=== PATIENT | female | born 1995 | race Two or more races ===

== ENCOUNTER 2016-08-19 22:47 | Emergency (ER) | payer MEDICAID ==
[~2016-08-19] VITALS: Ht 167.6 cm; Wt 63.5 kg
[2016-08-19 23:49] LABS: Urine Bilirubin Negative (Negative); Urine Blood Negative /uL (Negative); Urine Color Yellow (Yellow); Urine Glucose Normal (Normal); Urine Ketone Negative (Negative); Urine Mucus FEW (None Seen); Urine Nitrite Negative (Negative); Urine RBC <1 /hpf (0 - 4); Urine Squamous Epithelial Cell FEW /hpf (<5); Urine Urobilinogen Normal (Negative)
[2016-08-20 00:08] LABS: Basophils # (auto) 0.1 uL; Basophils % (auto) 0.5 % (0.0-2.0); Eosinophils # (auto) 0.1 uL; Eosinophils % (auto) 0.7 % (0.0-7.0); Hematocrit 40.8 % (36.0-46.0); Hemoglobin 13.7 g/dL (12.2-16.2); Lymphocytes # (auto) 2.9 uL; Lymphocytes % (auto) 25.5 % (10.0-50.0); Mean Corpuscular Hemoglobin 28.4 pg (28.0-32.0); Mean Corpuscular Hgb Conc. 33.5 g/dL (32.0-36.0); Mean Corpuscular Volume 84.7 fL (80.0-100.0); Mean Platelet Volume 8.3 fL (7.4-10.4); Monocytes # (auto) 0.5 uL; Neutrophils # (auto) 7.7 uL; Neutrophils % (auto) 69.3 % (37.0-80.0); Platelet Count (auto) 412 10^3/uL (140-450); Red Cell Distribution Width 11.8 % (11.6-16.0); White Blood Cell 11.3 10^3/uL (4.4-10.8)
[2016-08-20 00:09] LABS: INR 0.98 (0.9-1.15); Partial Thromboplastin Time 27.2 sec (22.64-33.71); Prothrombin Time 10.1 sec (9.37-12.3)
[2016-08-20 00:13] LABS: Albumin 3.9 g/dL (3.4-5.0); BUN/Creatinine Ratio 10.5; Calcium 8.6 mg/dL (8.5-10.1); Potassium 4.2 mmol/L (3.5-5.1)
[2016-08-20 00:16] LABS: Bilirubin, Total 0.4 mg/dL (0.2-1.0); Total Protein 8.6 g/dL (6.4-8.2)
[2016-08-20 03:13] VITALS: BP 126/72
[2016-08-20] MEDS ORDERED: ONDANSETRON HCL 4 MG/2 ML VIAL IV ONE (03:30)
[2016-08-20] MEDS ORDERED: ACETAMINOPHEN/CODEINE#3 (300/30mg) TAB PO ONE (04:15)
== END 2016-08-20 05:14 | disposition home or self-care (01) ==
LOC: ER 22:58
DX: K76.0 Fatty (change of) liver, not elsewhere classified (principal); N83.209 Unspecified ovarian cyst, unspecified side
CPT/HCPCS: 36415; 74176; 80053; 81001; 81025; 82150; 83690; 85025; 85049; 85610; 85730; 96374; 99285; J2405

== ENCOUNTER 2020-01-26 14:37 | Emergency (ER) | payer MEDICAID ==
[~2020-01-26] VITALS: Ht 172.7 cm; Wt 88.5 kg
[2020-01-26 15:07] LABS: Basophils # (auto) 0 10 ^3/uL (0-0.2); Basophils % (auto) 0.2 % (0.0-2.0); Eosinophils # (auto) 0 10 ^3/uL (0-0.8); Eosinophils % (auto) 0.4 % (0.0-7.0); Hematocrit 38.7 % (36.0-46.0); Hemoglobin 12.8 g/dL (12.2-16.2); Lymphocytes # (auto) 1.8 10 ^3/uL (0.4-5.4); Lymphocytes % (auto) 15.8 % (10.0-50.0); Mean Corpuscular Hemoglobin 28.8 pg (28.0-32.0); Monocytes # (auto) 0.5 10 ^3/uL (0-1.3); Monocytes % (auto) 4.4 % (0.0-12.0); Neutrophils # (auto) 9.3 10 ^3/uL (1.6-8.6); Neutrophils % (auto) 79.2 % (37.0-80.0); Platelet Count (auto) 301 10^3/uL (140-450); Red Blood Cells 4.44 10^6/uL (4.0-5.20); Red Cell Distribution Width 12.8 % (11.8-14.3); White Blood Cell 11.7 10^3/uL (4.4-10.8)
[2020-01-26 15:25] LABS: Albumin 3.3 g/dL (3.4-5.0); BUN/Creatinine Ratio 10.5; Calcium 8.9 mg/dL (8.5-10.1); Potassium 3.5 mmol/L (3.5-5.1)
[2020-01-26 15:26] LABS: Bilirubin, Total 0.2 mg/dL (0.2-1.0); Total Protein 7.7 g/dL (6.4-8.2)
[2020-01-26 16:48] LABS: Urine Bacteria FEW /hpf (None Seen); Urine Blood Negative /uL (Negative); Urine Specific Gravity 1.002 (1.001-1.035); Urine WBC <1 /hpf (0 - 5)
[2020-01-26 17:39] VITALS: BP 133/78
== END 2020-01-26 17:48 | disposition home or self-care (01) ==
LOC: ER 14:37
DX: O46.8X1 Other antepartum hemorrhage, first trimester (principal); O41.8X10 Other specified disorders of amniotic fluid and membranes, first trimester, not applicable or unspecified; Z3A.12 12 weeks gestation of pregnancy
CPT/HCPCS: 36415; 76801; 76817; 80053; 81001; 84702; 85025

== ENCOUNTER 2020-02-12 20:01 | Emergency (ER) | payer MEDICAID ==
[~2020-02-12] VITALS: Ht 170.2 cm; Wt 86.2 kg
[2020-02-12 20:44] VITALS: BP 147/76
[2020-02-12 21:18] LABS: Basophils # (auto) 0 10 ^3/uL (0-0.2); Basophils % (auto) 0.1 % (0.0-2.0); Eosinophils # (auto) 0 10 ^3/uL (0-0.8); Eosinophils % (auto) 0.3 % (0.0-7.0); Hematocrit 38.3 % (36.0-46.0); Hemoglobin 12.7 g/dL (12.2-16.2); Lymphocytes # (auto) 2.1 10 ^3/uL (0.4-5.4); Lymphocytes % (auto) 14.1 % (10.0-50.0); Mean Corpuscular Hemoglobin 28.5 pg (28.0-32.0); Mean Corpuscular Hgb Conc. 33.1 g/dL (32.0-36.0); Mean Corpuscular Volume 86.3 fL (80.0-100.0); Monocytes # (auto) 0.5 10 ^3/uL (0-1.3); Monocytes % (auto) 3.6 % (0.0-12.0); Neutrophils # (auto) 12.1 10 ^3/uL (1.6-8.6); Neutrophils % (auto) 81.9 % (37.0-80.0); Nucleated Red Blood Cells % 0.1 %; Platelet Count (auto) 303 10^3/uL (140-450); Red Blood Cells 4.44 10^6/uL (4.0-5.20); Red Cell Distribution Width 12.8 % (11.8-14.3); White Blood Cell 14.8 10^3/uL (4.4-10.8)
[2020-02-12 21:34] LABS: INR 0.99 (0.9-1.15); Partial Thromboplastin Time 26.2 sec (23.64-32.05)
[2020-02-12 21:41] LABS: Albumin 3.4 g/dL (3.4-5.0); BUN/Creatinine Ratio 12.1; Calcium 9.3 mg/dL (8.5-10.1); Magnesium 1.9 mg/dL (1.6-2.6); Potassium 3.2 mmol/L (3.5-5.1)
[2020-02-12 21:44] LABS: Bilirubin, Total 0.4 mg/dL (0.2-1.0); Total Protein 8.2 g/dL (6.4-8.2)
[2020-02-12 22:11] LABS: Urine Bacteria FEW /hpf (None Seen); Urine Blood Negative /uL (Negative); Urine Mucus FEW (None Seen); Urine Specific Gravity 1.026 (1.001-1.035); Urine WBC 6 /hpf (0 - 5)
== END 2020-02-13 01:00 | disposition left against medical advice (07) ==
LOC: ER 20:02
DX: O99.612 Diseases of the digestive system complicating pregnancy, second trimester (principal); O21.8 Other vomiting complicating pregnancy; K52.9 Noninfective gastroenteritis and colitis, unspecified; N83.209 Unspecified ovarian cyst, unspecified side; Z3A.16 16 weeks gestation of pregnancy; Z88.8 Allergy status to other drugs, medicaments and biological substances
CPT/HCPCS: 36415; 76805; 80053; 81001; 82150; 83690; 83735; 84702; 85025; 85610; 85730

== ENCOUNTER 2020-05-22 11:20 | Observation (INO) | payer MEDICAID ==
[2020-05-22] MEDS ORDERED: PREN-96 PO (11:45)
[2020-05-22] MEDS ORDERED: NIF10C GT (11:46)
[2020-05-22 12:41] LABS: Alcohol, Urine < 3.0 mg/dL (0-10); Amphetamine Screen, Urine NEGATIVE (NEGATIVE); Barbiturate Scree,Urine NEGATIVE (NEGATIVE); Benzodiazephine Screen, Urine NEGATIVE (NEGATIVE); Cannabinoid Screen, Urine POSITIVE (NEGATIVE); Cocaine Screen, Urine NEGATIVE (NEGATIVE); Opiate Scree,Urine NEGATIVE (NEGATIVE); Phencyclidine Screen, Urine NEGATIVE (NEGATIVE)
== END 2020-05-22 12:20 | disposition home or self-care (01) ==
LOC: UNDOADMOB 11:20 → LDRP 11:20 → UNDODISOB 12:20
PROVIDERS: ADMIT Obstetrics & Gynecology; ATTEND Obstetrics & Gynecology
DX: O60.03 Preterm labor without delivery, third trimester (principal); O24.419 Gestational diabetes mellitus in pregnancy, unspecified control; Z3A.30 30 weeks gestation of pregnancy; Z79.899 Other long term (current) drug therapy
CPT/HCPCS: 59025; 80307; 81002; 82948; 82962; G0378

== ENCOUNTER 2020-05-29 08:13 | Observation (INO) | payer MEDICAID ==
[~2020-05-29 08:13] MED LIST: NIF10C GT; PREN-96 PO
== END 2020-05-29 09:24 | disposition home or self-care (01) ==
LOC: UNDOADMOB 08:13 → LDRP 08:13 → UNDODISOB 09:24
PROVIDERS: ADMIT Specialist; ATTEND Specialist
DX: O24.410 Gestational diabetes mellitus in pregnancy, diet controlled (principal); O60.03 Preterm labor without delivery, third trimester; Z87.891 Personal history of nicotine dependence; Z3A.31 31 weeks gestation of pregnancy
CPT/HCPCS: 59025; 76818; 81002; 82962; G0378

== ENCOUNTER 2020-06-05 08:05 | Observation (INO) | payer MEDICAID ==
[~2020-06-05] VITALS: Ht 172.7 cm; Wt 90.7 kg
[2020-06-05] MEDS ORDERED: LACTATED RINGER'S 1,000 ML IV ONE (09:45)
== END 2020-06-05 10:44 | disposition home or self-care (01) ==
LOC: UNDOADMOB 08:05 → LDRP 08:05
PROVIDERS: ADMIT Obstetrics & Gynecology; ATTEND Obstetrics & Gynecology
DX: O24.410 Gestational diabetes mellitus in pregnancy, diet controlled (principal); O60.03 Preterm labor without delivery, third trimester; Z3A.32 32 weeks gestation of pregnancy
CPT/HCPCS: 59025; 76818; 81002; 82948; 82962; 96360; G0378; J7030

== ENCOUNTER 2020-06-12 08:03 | Observation (INO) | payer MEDICAID ==
[~2020-06-12] VITALS: Ht 170.2 cm; Wt 95.3 kg
== END 2020-06-12 09:48 | disposition home or self-care (01) ==
LOC: LDRP 08:03
PROVIDERS: ADMIT Obstetrics & Gynecology; ATTEND Obstetrics & Gynecology
DX: O99.891 Other specified diseases and conditions complicating pregnancy (principal); R51.9 Headache, unspecified; O24.410 Gestational diabetes mellitus in pregnancy, diet controlled; O60.03 Preterm labor without delivery, third trimester; Z3A.33 33 weeks gestation of pregnancy
CPT/HCPCS: 59025; 76818; 81002; 82962; G0378

== ENCOUNTER 2020-06-15 04:26 | Observation (INO) | payer MEDICAID ==
[~2020-06-15] VITALS: Ht 170.2 cm; Wt 95.3 kg
[2020-06-15] MEDS ORDERED: LACTATED RINGER'S 1,000 ML IV ONE (05:15)
[2020-06-15] MEDS ORDERED: ONDANSETRON HCL 4 MG/2 ML VIAL IV ONE (05:15)
== END 2020-06-15 06:34 | disposition home or self-care (01) ==
LOC: UNDOADMOB 04:26 → LDRP 04:26 → UNDODISOB 06:34
PROVIDERS: ADMIT Obstetrics & Gynecology; ATTEND Obstetrics & Gynecology
DX: O21.2 Late vomiting of pregnancy (principal); O99.613 Diseases of the digestive system complicating pregnancy, third trimester; R19.7 Diarrhea, unspecified; O99.283 Endocrine, nutritional and metabolic diseases complicating pregnancy, third trimester; E86.0 Dehydration; Z3A.33 33 weeks gestation of pregnancy
CPT/HCPCS: 59025; 81002; 82962; 96360; 96361; 96374; G0378; J2405

== ENCOUNTER 2020-06-19 08:13 | Observation (INO) | payer MEDICAID | END 2020-06-19 09:47 | disposition home or self-care (01) | LOC: LDRP 08:13 | PROVIDERS: ADMIT Obstetrics & Gynecology; ATTEND Obstetrics & Gynecology | DX: O24.410 Gestational diabetes mellitus in pregnancy, diet controlled (principal); O60.03 Preterm labor without delivery, third trimester; Z87.891 Personal history of nicotine dependence; Z3A.34 34 weeks gestation of pregnancy | CPT/HCPCS: 59025; 76818; 81002; 82948; 82962; G0378 ==

== ENCOUNTER 2020-06-26 08:20 | Observation (INO) | payer MEDICAID ==
[2020-06-26] MEDS ORDERED: HYDR250I6 IM (09:06)
== END 2020-06-26 10:04 | disposition home or self-care (01) ==
LOC: LDRP 08:20
PROVIDERS: ADMIT Obstetrics & Gynecology; ATTEND Obstetrics & Gynecology
DX: O40.3XX0 Polyhydramnios, third trimester, not applicable or unspecified (principal); O24.419 Gestational diabetes mellitus in pregnancy, unspecified control; Z3A.35 35 weeks gestation of pregnancy
CPT/HCPCS: 59025; 76818; 81002; 82948; 82962; G0378

== ENCOUNTER 2020-07-03 08:14 | Observation (INO) | payer MEDICAID ==
[~2020-07-03 08:14] MED LIST changes: +HYDR250I6 IM
== END 2020-07-03 09:54 | disposition home or self-care (01) ==
LOC: LDRP 08:14
PROVIDERS: ADMIT Obstetrics & Gynecology; ATTEND Obstetrics & Gynecology
DX: O24.419 Gestational diabetes mellitus in pregnancy, unspecified control (principal); O60.03 Preterm labor without delivery, third trimester; Z3A.36 36 weeks gestation of pregnancy
CPT/HCPCS: 59025; 76818; 81002; 82948; 82962; G0378

== ENCOUNTER 2020-07-05 20:08 | Observation (INO) | payer MEDICAID ==
[~2020-07-05 20:08] MED LIST changes: -HYDR250I6 IM; -NIF10C GT
== END 2020-07-05 21:30 | disposition home or self-care (01) ==
LOC: LDRP 20:08 → UNDOADMOB 20:08 → UNDODISOB 21:30
PROVIDERS: ADMIT Obstetrics & Gynecology; ATTEND Obstetrics & Gynecology
DX: O26.893 Other specified pregnancy related conditions, third trimester (principal); O99.891 Other specified diseases and conditions complicating pregnancy; R10.9 Unspecified abdominal pain; M54.9 Dorsalgia, unspecified; Z3A.36 36 weeks gestation of pregnancy
CPT/HCPCS: 59025; 81002; G0378

== ENCOUNTER 2020-07-10 08:03 | Observation (INO) | payer MEDICAID | END 2020-07-10 09:45 | disposition home or self-care (01) | LOC: LDRP 08:03 | PROVIDERS: ADMIT Obstetrics & Gynecology; ATTEND Obstetrics & Gynecology | DX: O24.410 Gestational diabetes mellitus in pregnancy, diet controlled (principal); Z87.891 Personal history of nicotine dependence; Z3A.37 37 weeks gestation of pregnancy | CPT/HCPCS: 59025; 76818; 81002; 82948; 82962; G0378 ==

== ENCOUNTER 2020-07-12 10:33 | Observation (INO) | payer MEDICAID | END 2020-07-12 14:05 | disposition home or self-care (01) | LOC: LDRP 10:33 | PROVIDERS: ADMIT Obstetrics & Gynecology; ATTEND Obstetrics & Gynecology | DX: O24.419 Gestational diabetes mellitus in pregnancy, unspecified control (principal); O62.9 Abnormality of forces of labor, unspecified; O34.63 Maternal care for abnormality of vagina, third trimester; N89.8 Other specified noninflammatory disorders of vagina; O13.3 Gestational [pregnancy-induced] hypertension without significant proteinuria, third trimester; O99.323 Drug use complicating pregnancy, third trimester; F12.90 Cannabis use, unspecified, uncomplicated; Z79.899 Other long term (current) drug therapy; Z87.891 Personal history of nicotine dependence; Z3A.37 37 weeks gestation of pregnancy | CPT/HCPCS: 59025; 81002; 82948; 82962; 84112; G0378; Q0114 ==

== ENCOUNTER 2020-07-13 09:13 | Observation (INO) | payer MEDICAID ==
[~2020-07-13] VITALS: Ht 172.7 cm; Wt 99.8 kg
[2020-07-13] MEDS ORDERED: SODIUM CHLORIDE 0.9% 1,000 ML IV ONE (10:15)
[2020-07-13] MEDS ORDERED: InsuLIN REG 1unit/0.01ml Soln (100units/ml) SC ONE (10:15)
[2020-07-13] MEDS ORDERED: InsuLIN REG 1unit/0.01ml Soln (100units/ml) ONE (10:23)
[2020-07-13 11:31] LABS: Urine Bacteria FEW /hpf (None Seen); Urine Blood Negative /uL (Negative); Urine Mucus FEW (None Seen); Urine WBC 385 /hpf (0 - 5); Urine WBC Clumps PRESENT /hpf (None Seen)
[2020-07-13 11:41] LABS: Albumin 2.7 g/dL (3.4-5.0); Calcium 9.3 mg/dL (8.5-10.1); Potassium 3.4 mmol/L (3.5-5.1)
[2020-07-13 11:44] LABS: BUN/Creatinine Ratio 10.3; Bilirubin, Total 0.2 mg/dL (0.2-1.0); Total Protein 7.4 g/dL (6.4-8.2)
[2020-07-13 11:45] LABS: Basophils # (auto) 0 10 ^3/uL (0-0.2); Basophils % (auto) 0.3 % (0.0-2.0); Eosinophils # (auto) 0 10 ^3/uL (0-0.8); Eosinophils % (auto) 0.2 % (0.0-7.0); Hematocrit 37.2 % (36.0-46.0); Hemoglobin 12.8 g/dL (12.2-16.2); Lymphocytes # (auto) 1.3 10 ^3/uL (0.4-5.4); Lymphocytes % (auto) 12.2 % (10.0-50.0); Mean Corpuscular Hemoglobin 28.9 pg (28.0-32.0); Mean Corpuscular Hgb Conc. 34.3 g/dL (32.0-36.0); Mean Corpuscular Volume 84.3 fL (80.0-100.0); Monocytes # (auto) 0.5 10 ^3/uL (0-1.3); Monocytes % (auto) 4.2 % (0.0-12.0); Neutrophils % (auto) 83.1 % (37.0-80.0); Nucleated Red Blood Cells % 0.1 %; Platelet Count (auto) 297 10^3/uL (140-450); Red Blood Cells 4.42 10^6/uL (4.0-5.20); Red Cell Distribution Width 15.2 % (11.8-14.3); White Blood Cell 10.8 10^3/uL (4.4-10.8)
[2020-07-13] MEDS ORDERED: CEFTRIAXONE SODIUM 2 GM in D5W 5% 50 ML IV ONE (11:45)
[2020-07-13 12:01] LABS: INR 0.92 (0.9-1.15); Partial Thromboplastin Time 23.3 sec (23.0-31.2)
[2020-07-13 13:13] LABS: Amphetamine Screen, Urine NEGATIVE (NEGATIVE); Barbiturate Scree,Urine NEGATIVE (NEGATIVE); Benzodiazephine Screen, Urine NEGATIVE (NEGATIVE); Cannabinoid Screen, Urine NEGATIVE (NEGATIVE); Cocaine Screen, Urine NEGATIVE (NEGATIVE); Opiate Scree,Urine NEGATIVE (NEGATIVE); Phencyclidine Screen, Urine NEGATIVE (NEGATIVE)
== END 2020-07-13 21:23 | disposition home or self-care (01) ==
LOC: LDRP 09:13
PROVIDERS: ADMIT Specialist; ATTEND Specialist
DX: O60.03 Preterm labor without delivery, third trimester (principal); Z20.828 Contact with and (suspected) exposure to other viral communicable diseases; O24.414 Gestational diabetes mellitus in pregnancy, insulin controlled; Z3A.37 37 weeks gestation of pregnancy; Z79.899 Other long term (current) drug therapy
CPT/HCPCS: 36415; 59025; 76805; 80053; 80307; 81001; 81002; 82948; 82962; 84550; 85025; 85379; 85610; 85730; 96361; 96365; G0378; J0696; J1815; J7060; U0003; 96360; 96372

== ENCOUNTER 2020-07-14 10:04 | Observation (INO) | payer MEDICAID ==
[2020-07-14 10:58] LABS: Basophils # (auto) 0 10 ^3/uL (0-0.2); Basophils % (auto) 0.3 % (0.0-2.0); Eosinophils # (auto) 0 10 ^3/uL (0-0.8); Eosinophils % (auto) 0.2 % (0.0-7.0); Hemoglobin 12.5 g/dL (12.2-16.2); Lymphocytes # (auto) 1.5 10 ^3/uL (0.4-5.4); Lymphocytes % (auto) 17.5 % (10.0-50.0); Mean Corpuscular Hemoglobin 28.1 pg (28.0-32.0); Mean Corpuscular Hgb Conc. 32.9 g/dL (32.0-36.0); Mean Corpuscular Volume 85.4 fL (80.0-100.0); Monocytes # (auto) 0.5 10 ^3/uL (0-1.3); Monocytes % (auto) 5.6 % (0.0-12.0); Neutrophils # (auto) 6.3 10 ^3/uL (1.6-8.6); Neutrophils % (auto) 76.4 % (37.0-80.0); Platelet Count (auto) 276 10^3/uL (140-450); Red Blood Cells 4.45 10^6/uL (4.0-5.20); White Blood Cell 8.3 10^3/uL (4.4-10.8)
[2020-07-14 11:15] LABS: INR 0.93 (0.9-1.15); Partial Thromboplastin Time 24.9 sec (23.0-31.2)
[2020-07-14 11:48] LABS: Albumin 2.7 g/dL (3.4-5.0); Calcium 8.5 mg/dL (8.5-10.1); Potassium 3.7 mmol/L (3.5-5.1)
[2020-07-14 11:53] LABS: BUN/Creatinine Ratio 10.7; Bilirubin, Total 0.4 mg/dL (0.2-1.0); Total Protein 7.4 g/dL (6.4-8.2); Uric Acid 4.3 mg/dL (2.6-6.0)
== END 2020-07-14 13:10 | disposition home or self-care (01) ==
LOC: UNDOADMOB 10:04 → LDRP 10:04 → UNDODISOB 13:10
PROVIDERS: ADMIT Specialist; ATTEND Specialist
DX: O13.3 Gestational [pregnancy-induced] hypertension without significant proteinuria, third trimester (principal); O62.9 Abnormality of forces of labor, unspecified; O99.323 Drug use complicating pregnancy, third trimester; F12.90 Cannabis use, unspecified, uncomplicated; Z87.891 Personal history of nicotine dependence; Z3A.37 37 weeks gestation of pregnancy; Z79.899 Other long term (current) drug therapy
CPT/HCPCS: 36415; 59025; 76818; 80053; 81002; 82948; 82962; 84550; 85025; 85362; 85379; 85610; 85730; G0378

== ENCOUNTER 2020-07-16 08:29 | Observation (INO) | payer MEDICAID | END 2020-07-16 10:03 | disposition home or self-care (01) | LOC: LDRP 08:29 | PROVIDERS: ADMIT Obstetrics & Gynecology; ATTEND Obstetrics & Gynecology | DX: O24.419 Gestational diabetes mellitus in pregnancy, unspecified control (principal); O62.9 Abnormality of forces of labor, unspecified; O34.63 Maternal care for abnormality of vagina, third trimester; N89.8 Other specified noninflammatory disorders of vagina; O26.893 Other specified pregnancy related conditions, third trimester; R51.9 Headache, unspecified; R11.0 Nausea; H53.8 Other visual disturbances; O99.323 Drug use complicating pregnancy, third trimester; F12.90 Cannabis use, unspecified, uncomplicated; Z79.899 Other long term (current) drug therapy; Z87.891 Personal history of nicotine dependence; Z3A.38 38 weeks gestation of pregnancy | CPT/HCPCS: 59025; 76818; 81002; 82948; 82962; G0378 ==

== ENCOUNTER 2020-07-19 08:20 | Observation (INO) | payer MEDICAID ==
[2020-07-19 11:20] LABS: Amphetamine Screen, Urine NEGATIVE (NEGATIVE); Barbiturate Scree,Urine NEGATIVE (NEGATIVE); Benzodiazephine Screen, Urine NEGATIVE (NEGATIVE); Cannabinoid Screen, Urine NEGATIVE (NEGATIVE); Cocaine Screen, Urine NEGATIVE (NEGATIVE); Opiate Scree,Urine NEGATIVE (NEGATIVE); Phencyclidine Screen, Urine NEGATIVE (NEGATIVE)
[2020-07-19 11:28] LABS: Alcohol, Urine < 3.0 mg/dL (0-10)
== END 2020-07-19 10:10 | disposition home or self-care (01) ==
LOC: LDRP 08:20
PROVIDERS: ADMIT Obstetrics & Gynecology; ATTEND Obstetrics & Gynecology
DX: O24.419 Gestational diabetes mellitus in pregnancy, unspecified control (principal); Z20.828 Contact with and (suspected) exposure to other viral communicable diseases; Z3A.38 38 weeks gestation of pregnancy; Z79.899 Other long term (current) drug therapy
CPT/HCPCS: 59025; 76818; 80307; 81002; 82948; 82962; G0378

== ENCOUNTER 2020-07-20 10:17 | Inpatient (IN) | payer MEDICAID ==
[~2020-07-20] VITALS: Ht 172.7 cm; Wt 99.8 kg
[2020-07-20] MEDS ORDERED: LACTATED RINGER'S 1,000 ML IV SCH (10:45)
[2020-07-20] MEDS ORDERED: LACT. RINGERS/OXYTOCIN 20UNITS 1,000 ML IV SCH ×2 (10:45→16:15)
[2020-07-20] MEDS ORDERED: LACT. RINGERS/OXYTOCIN 20UNITS 1,000 ML IV ONE (10:45)
[2020-07-20] MEDS ORDERED: PHISODERM TOP SOLN 240ML BTL TOP PRN (10:45)
[2020-07-20] MEDS ORDERED: PENICILLIN G POT 5MIL/D5 50ML 50 ML IV ONE (10:45)
[2020-07-20] MEDS ORDERED: DERMOPLAST 60ML BOTTLE TOP PRN (10:45)
[2020-07-20] MEDS ORDERED: LIDOCAINE 2%HCL (LOCAL ANESTH.) INJ 20ML MDV IJ PRN (10:45)
[2020-07-20] MEDS ORDERED: WITCH HAZEL-GLYCERIN PAD TOP PRN (10:45)
[2020-07-20 11:39] LABS: Basophils # (auto) 0 10 ^3/uL (0-0.2); Basophils % (auto) 0.3 % (0.0-2.0); Eosinophils # (auto) 0 10 ^3/uL (0-0.8); Eosinophils % (auto) 0.1 % (0.0-7.0); Hematocrit 39.1 % (36.0-46.0); Lymphocytes # (auto) 1.4 10 ^3/uL (0.4-5.4); Mean Corpuscular Hemoglobin 28.1 pg (28.0-32.0); Mean Corpuscular Hgb Conc. 33.2 g/dL (32.0-36.0); Mean Corpuscular Volume 84.5 fL (80.0-100.0); Monocytes # (auto) 0.5 10 ^3/uL (0-1.3); Monocytes % (auto) 4.8 % (0.0-12.0); Neutrophils % (auto) 81.8 % (37.0-80.0); Platelet Count (auto) 281 10^3/uL (140-450); Red Blood Cells 4.62 10^6/uL (4.0-5.20); Red Cell Distribution Width 14.8 % (11.8-14.3)
[2020-07-20 11:39] LABS: Urine Bacteria FEW /hpf (None Seen); Urine Blood Negative /uL (Negative); Urine Mucus FEW (None Seen); Urine Specific Gravity 1.017 (1.001-1.035); Urine WBC 22 /hpf (0 - 5)
[2020-07-20 11:44] LABS: Alcohol, Urine < 3.0 mg/dL (0-10); Amphetamine Screen, Urine NEGATIVE (NEGATIVE); Barbiturate Scree,Urine NEGATIVE (NEGATIVE); Benzodiazephine Screen, Urine NEGATIVE (NEGATIVE); Cannabinoid Screen, Urine NEGATIVE (NEGATIVE); Cocaine Screen, Urine NEGATIVE (NEGATIVE); Opiate Scree,Urine NEGATIVE (NEGATIVE); Phencyclidine Screen, Urine NEGATIVE (NEGATIVE)
[2020-07-20 11:56] LABS: Albumin 2.7 g/dL (3.4-5.0); Calcium 8.8 mg/dL (8.5-10.1); Potassium 3.9 mmol/L (3.5-5.1)
[2020-07-20 11:59] LABS: BUN/Creatinine Ratio 13.8; Bilirubin, Total 0.3 mg/dL (0.2-1.0); Total Protein 7.3 g/dL (6.4-8.2)
[2020-07-20 12:17] LABS: INR 0.92 (0.9-1.15); Partial Thromboplastin Time 24.5 sec (23.0-31.2)
[2020-07-20] MEDS ORDERED: TERBUTALINE SULFATE 1 MG/ML 1ML VIAL SC ONE (16:15)
[2020-07-20] MEDS: PENICILLIN G POTASSIUM 2,500,000 UNITS in D5W 5% 50 ML IV SCH ×2 (16:34→20:30)
[2020-07-20] MEDS ORDERED: ePHEDrine SULFATE 50 MG/ML AMP IV ONE (18:45)
[2020-07-20] MEDS ORDERED: LIDOCAINE HCL 2 %PF INJ 10ML AMP IJ ONE (18:45)
[2020-07-20] MEDS ORDERED: LACTATED RINGER'S 1,000 ML IV ONE (18:45)
[2020-07-20] MEDS ORDERED: NALOXONE HCL 0.4 MG/ML VIAL IV ONE (18:45)
[2020-07-20] MEDS ORDERED: fentaNYL CITRATE 100 MCG/2 ML VL IV ONE (18:45)
[2020-07-20] MEDS: ROPIVACAINE HCL 200 ML EPI SCH (19:58)
[2020-07-20] MEDS: ONDANSETRON HCL 4 MG/2 ML VIAL IV PRN (20:58)
[2020-07-20] MEDS: LACTATED RINGER'S 1,000 ML IV SCH (21:50)
[2020-07-21] VITALS (11 sets, daily range): BP systolic 113–152; BP diastolic 46–87
[2020-07-21] MEDS: PENICILLIN G POTASSIUM 2,500,000 UNITS in D5W 5% 50 ML IV SCH ×2 (00:42→04:22)
[2020-07-21] MEDS: ONDANSETRON HCL 4 MG/2 ML VIAL IV PRN ×2 (00:50→05:42)
[2020-07-21 05:07] LABS: RPR Non Reactive (Non Reactive)
[2020-07-21] MEDS: LACTATED RINGER'S 1,000 ML IV SCH (05:45)
[2020-07-21] MEDS ORDERED: ceFAZolin 1GM/50ML 50 ML IV ONE (07:12)
[2020-07-21] MEDS: ceFAZolin 1GM/50ML 50 ML IV SCH ×3 (07:59→22:37)
[2020-07-21] MEDS: ROPIVACAINE HCL 200 ML EPI SCH (08:22)
[2020-07-21] MEDS ORDERED: ACETAMINOPHEN IV 1000 MG/100ML (10MG/ML) IV ONE (10:00)
[2020-07-21] MEDS ORDERED: fentaNYL CITRATE 100 MCG/2 ML VL IV ONE (10:30)
[2020-07-21] MEDS ORDERED: LIDOCAINE HCL 2 %PF INJ 10ML AMP IJ ONE (10:30)
[2020-07-21] MEDS ORDERED: LIDOCAINE 2% (LOCAL ANESTH.) PF 5ml SDV ONE (10:35)
[2020-07-21] MEDS ORDERED: fentaNYL CITRATE 100 MCG/2 ML VL ONE ×2 (10:35→14:04)
[2020-07-21] MEDS ORDERED: TETRACAINE 1% INJ 2 ML VIAL IJ ONE (14:02)
[2020-07-21] MEDS ORDERED: PHENYLEPHRINE HCL 10 MG/ML VL ONE (14:04)
[2020-07-21] MEDS ORDERED: ONDANSETRON HCL 4 MG/2 ML VIAL ONE (14:04)
[2020-07-21] MEDS ORDERED: oxyTOCIN 10 UNIT/ML 10ML VIAL ONE (14:04)
[2020-07-21] MEDS ORDERED: ePHEDrine SULFATE 50 MG/ML AMP ONE (14:04)
[2020-07-21] MEDS ORDERED: MORPHINE SULF(PF) 0.5MG/ML 10ML VIAL ONE (14:04)
[2020-07-21] MEDS ORDERED: GLYCOPYRROLATE 0.2 MG/ML 1ML VIAL ONE (14:04)
[2020-07-21] MEDS ORDERED: MIDAZOLAM HCL 1MG/1ML-2 ML VIAL ONE (14:41)
[2020-07-21] MEDS ORDERED: LACTATED RINGER'S 1,000 ML IV SCH (14:45)
[2020-07-21] MEDS ORDERED: HYDROmorphone HCL 2 MG/ML VL IV PRN ×2 (14:45→16:15)
[2020-07-21] MEDS ORDERED: GUM (CHEWING) 1 GUM CHEW CHEW ONE (14:45)
[2020-07-21] MEDS ORDERED: ONDANSETRON HCL 4 MG/2 ML VIAL IV PRN ×3 (14:45→15:15)
[2020-07-21] MEDS ORDERED: ceFAZolin 1GM/50ML 50 ML IV SCH (14:45)
[2020-07-21] MEDS ORDERED: HYDROmorphone HCL 2 MG/ML VL ONE (15:09)
[2020-07-21] MEDS ORDERED: ACCU-CHEK COMFORT CURVE STRIP VI ONE (15:15)
[2020-07-21] MEDS ORDERED: DexAMETHasone SOD PHOS 10MG/1ML VIAL INJ IV PRN (15:15)
[2020-07-21] MEDS ORDERED: diphenhdrAMINE HCL 50 MG/1 ML VL IV PRN (15:15)
[2020-07-21] MEDS ORDERED: NALBUPHINE HCL 10 MG/1ml INJECTION SUBCUT ONE (15:15)
[2020-07-21] MEDS ORDERED: NALOXONE HCL 0.4 MG/ML VIAL IV PRN (15:15)
[2020-07-21] MEDS: ACETAMINOPHEN IV 1000 MG/100ML (10MG/ML) IV PRN (16:18)
--- NOTE | 2020-07-21 18:03 | NUR ---
CALL PLACED TO DR LOMELI REGARDING PT C/O INCISIONAL PAIN 02/09 AND UNABLE TO GIVE ANY MEDS AT THIS TIME, ORDER RECEIVED TO CHANGE DILAUDID TO 1MG Q2HPRN INSTEAD OF Q4HPRN.
--- NOTE | 2020-07-21 18:10 | NUR ---
UPDATED PT WITH POC REGARDING PAIN MEDICATION CHANGE, PT AGREED AND FEELS IT WILL BE BETTER. PERICARE DONE AND PADS CHANGED.
[2020-07-21] MEDS: HYDROmorphone HCL 2 MG/ML VL IV PRN ×2 (20:15→22:54)
[2020-07-22] VITALS (10 sets, daily range): BP systolic 104–128; BP diastolic 51–84
[2020-07-22] MEDS: HYDROmorphone HCL 2 MG/ML VL IV PRN ×2 (01:26→04:01)
--- NOTE | 2020-07-22 03:30 | NUR ---
Ambulation: Patient OOB with standby assistance by RN. Patient ambulated to bedside chair with steady gait. [facility] teaching provided with returned demonstration by patient. Clean gown provided and bed linen changed. Patient ambulated back to bed with steady gait and no distress noted.
--- NOTE | 2020-07-22 05:20 | NUR ---
Tucker catheter dc'd Order to discontinue tucker catheter. Tucker dc'd with clean technique following deflation of balloon. Patient tolerated well with no complaints of pain. Continue care.
[2020-07-22] MEDS: ceFAZolin 1GM/50ML 50 ML IV SCH ×2 (05:57→14:06)
[2020-07-22] MEDS: ACETAMINOPHEN IV 1000 MG/100ML (10MG/ML) IV PRN (06:51)
[2020-07-22 07:53] LABS: Basophils # (auto) 0.1 10 ^3/uL (0-0.2); Basophils % (auto) 0.6 % (0.0-2.0); Eosinophils # (auto) 0 10 ^3/uL (0-0.8); Hemoglobin 9.2 g/dL (12.2-16.2); Lymphocytes # (auto) 2.4 10 ^3/uL (0.4-5.4); Lymphocytes % (auto) 15.3 % (10.0-50.0); Mean Corpuscular Hemoglobin 28.2 pg (28.0-32.0); Mean Corpuscular Hgb Conc. 32.8 g/dL (32.0-36.0); Mean Corpuscular Volume 86.1 fL (80.0-100.0); Monocytes # (auto) 1.2 10 ^3/uL (0-1.3); Monocytes % (auto) 7.6 % (0.0-12.0); Neutrophils % (auto) 76.5 % (37.0-80.0); Platelet Count (auto) 223 10^3/uL (140-450); Red Blood Cells 3.26 10^6/uL (4.0-5.20); Red Cell Distribution Width 15.2 % (11.8-14.3); White Blood Cell 15.8 10^3/uL (4.4-10.8)
[2020-07-22] MEDS ORDERED: HYDROcodone-ACET 5/325MG TAB PO PRN (08:15)
[2020-07-22] MEDS: DOCUSATE SOD 100 MG CAP PO SCH ×2 (10:09→21:21)
[2020-07-22] MEDS: IBUPROFEN 800 MG TAB PO PRN ×2 (10:09→18:29)
[2020-07-22] MEDS: HYDROcodone-ACET 5/325MG TAB PO PRN ×3 (11:10→21:09)
--- NOTE | 2020-07-22 15:00 | NUR ---
[place] Bath: Pre-bath temp 98.3 , hair washed at sink with the completion of the bath done under radiant warmer. tolerated well, temperature after bath was 98.5 .
[2020-07-23] MEDS: HYDROcodone-ACET 5/325MG TAB PO PRN ×4 (01:34→18:54)
[2020-07-23 03:00] VITALS: BP 127/75
[2020-07-23] MEDS: IBUPROFEN 800 MG TAB PO PRN ×3 (04:01→22:24)
[2020-07-23 07:00] VITALS: BP 120/83
--- NOTE | 2020-07-23 10:15 | NUR ---
Patient states pain in right foot and +2 non-pitting edema bilaterally in feet and legs. Denies pain in calves. No redness noted. Educated on importance of frequent ambulating and drinking at least one gallon of water each day. Educated to call if any pain, tenderness, increased swelling, heat, or redness noted in calves. Verbalized understanding of all education.
[2020-07-23] MEDS: DOCUSATE SOD 100 MG CAP PO SCH ×2 (10:16→22:24)
--- NOTE | 2020-07-23 10:20 | NUR ---
IV removal IV DC'd on right wrist, catheter fully intact. Pressure dressing applied to site. Patient tolerated procedure well. Addendum: 07/23/20 at 1054 by SHILPA LAW RN RN Amended: Links added.
[2020-07-23 11:30] VITALS: BP 129/89
--- NOTE | 2020-07-23 13:50 | NUR ---
Krys from social science professor called about social science professor consult. Notified of consult due to previous positive UDS in early . Consult needed per policy. Patient denies use of THC at this time. Admission UDS negative. not displaying signs of withdrawal. Verbalized understanding.
[2020-07-23 15:30] VITALS: BP 108/70
[2020-07-23] MEDS: SIMETHICONE 80 MG CHEWABLE TABLET PO PRN ×2 (15:34→22:25)
--- NOTE | 2020-07-23 16:15 | NUR ---
Marissa from social service liaison called regarding social service liaison consult. Notified of patient positive THC screen in early . Negative UDS on admission. Patient denies use of THC. Infant does not display any signs of withdrawal. Notified of policy regarding consult. Marissa states that she will consult with patient before discharge in the AM. Patient informed of consult. Verbalized understanding. Agrees to consult.
[2020-07-23] MEDS ORDERED: BISACODYL 10 MG RECT SUPP PR PRN (18:45)
[2020-07-23 19:15] VITALS: BP 146/83
[2020-07-23 22:43] VITALS: BP 121/66
[2020-07-24] MEDS: HYDROcodone-ACET 5/325MG TAB PO PRN ×3 (00:33→10:32)
[2020-07-24 03:00] VITALS: BP 121/76
--- NOTE | 2020-07-24 06:12 | NUR ---
Report received from Snow RICK RN on stable pt. Assumed care. Addendum: 07/24/20 at 0854 by Lois Duran RN Amended: Links added.
[2020-07-24 07:05] VITALS: BP 132/83
--- NOTE | 2020-07-24 08:28 | NUR ---
Consultation SW spoke with patient in regards to testing positive for THC in the beginning of her , she tested negative upon admission. Per Mynor, she uses THC for pain, at the time that she tested positive for THC, she didn't know that she was . Per Mynor, she immediately stop using THC, because of her and she doesn't have plans to use THC post discharge.
--- NOTE | 2020-07-24 09:08 | NUR ---
Report given to Shakira Mason RN and Shakira Devries RN on stable pt. Relinquished care.
[2020-07-24] MEDS ORDERED: MEASLES, MUMPS & RUBELLA VAC(MMRII) 0.5ML SC ONE (10:30)
[2020-07-24] MEDS: DOCUSATE SOD 100 MG CAP PO SCH (10:32)
[2020-07-24 10:46] VITALS: BP 128/75
--- NOTE | 2020-07-24 11:41 | NUR ---
Discharge: Discharge instructions given as ordered. Pt encouraged to follow up with [employer] as instructed. All questions and concerns addressed. Patient verbalized understanding. Medication reconciliation completed and copy given to patient. All required/requested vaccines given and copies of vaccinations given to patient. Patient encouraged to prepare to depart unit.
--- NOTE | 2020-07-24 12:01 | NUR ---
Discharge: Patient taken to vehicle via wheelchair with all personal belongings, accompanied by staff and family member. No distress noted at time of departure, no adverse changes in status since initial assessment.
== END 2020-07-24 12:02 | disposition home or self-care (01) | DRG 540 ==
LOC: LDRP 10:17 → OBSVTOIN 10:39 → LDRP 23:28
PROVIDERS: ADMIT Specialist; ATTEND Specialist
PROC: 10D00Z1 Extraction of Products of Conception, Low, Open Approach (ICD-10-PCS; principal; 2020-07-21 14:25)
DX: O66.5 Attempted application of vacuum extractor and forceps (principal); O24.429 Gestational diabetes mellitus in childbirth, unspecified control; O36.63X0 Maternal care for excessive fetal growth, third trimester, not applicable or unspecified; O62.0 Primary inadequate contractions; Z3A.39 39 weeks gestation of pregnancy; Z37.0 Single live birth; Z91.018 Allergy to other foods; Z20.828 Contact with and (suspected) exposure to other viral communicable diseases; O99.824 Streptococcus B carrier state complicating childbirth
CPT/HCPCS: 36415; 59025; 62282; 80053; 80307; 81001; 82948; 82962; 85025; 85610; 85730; 86592; 86850; 86900; 86901; 87426; 94762; 96360; 96361; 96365; 96366; 96374; 96375; G0378; J0131; J0690; J2001; J2250; J2405; J2540; J2590; J7060

== ENCOUNTER → 2023-08-13 | Outpatient (CLI) | payer SELFPAY ==
[~2023-08-13] MED LIST changes: +IOHEXOL 300 MG/ML 100ML BOTTLE IJ ONE
== END | disposition home or self-care (01) ==
LOC: XYW 12:41
DX: R10.9 Unspecified abdominal pain (principal)
CPT/HCPCS: 74177; Q9967